=== PATIENT | female | born 1945 | race Caucasian/White ===

== ENCOUNTER 2018-08-10 13:56 | Outpatient (CLI) | payer MEDICARE ==
[2018-08-10] MEDS ORDERED: BARIUM SULFATE 240 ML ORAL.SUSP PO ONE (15:46)
[2018-08-10] MEDS ORDERED: BARIUM SULFATE 148 GM SUSP.RECON PO ONE (15:46)
== END 2018-08-10 23:59 | disposition home or self-care (01) ==
LOC: RAD 13:56
DX: R13.10 Dysphagia, unspecified (principal)
CPT/HCPCS: 74230; 92611